=== PATIENT | male | born 1975 | race African-American/Black ===

== ENCOUNTER 2022-03-17 08:48 | Emergency (ER) | payer OTHER, SELFPAY ==
--- NOTE | ~2022-03-17 | XR_ITS ---
XR shoulder LT min 2V DATE: 03/17/2022 09:23 INDICATION: Pain and numbness of left shoulder TECHNIQUE: 4 views COMPARISON: None FINDINGS: There is degenerative disc disease at C5-6 and C6-7, with uncovertebral joint spurring at t hese levels. No fracture or dislocation, periosteal reaction or bone destruction of the left shoulder. Normal alig nment at the left acromioclavicular and glenohumeral joints and both sternoclavicular joints. IMPRESSION: Degenerative disc disease and uncovertebral joint spurring at C5-6 and C6-7 No significant abnormality of the left shoulder Reviewed, dictated and finalized at location A. [facility]
[2022-03-17 08:50] VITALS: BP 146/80; PULSE 76; RESP 16; TEMP 37.1; O2SAT 100
--- NOTE | 2022-03-17 09:28 | ED.EXTPRO ---
HPI - Extremity Problem General Chief complaint: Extremity Problem,Nontraumatic Stated complaint: shoulder pain Time Seen by Provider: 03/17/22 08:56 History of Present Illness HPI Narrative: 46-year-old male here for evaluation of atraumatic left shoulder pain for the past 2 days. Patient states the pain starts in his scapula and shoots down into his hand. Pain is there when he moves his neck. Denies any weakness, neck pain, traumatic injury, fevers or chills, chest pain or shortness of breath. He has not attempted any medicine for his pain. Related Data Allergies Allergy/AdvReac Type Severity Reaction Status Date / Time No Known Allergies Allergy Verified 03/17/22 09:58 Review of Systems Review of Systems: Gen: Denies fevers or chills Eyes: Denies eye pain or visual change ENT: Denies congestion Respiratory: Denies shortness of breath or cough CV: Denies chest pain or palpitations GI: Denies abdominal pain nausea, emesis or diarrhea : denies burning, urgency, frequency or hematuria Musculoskeletal: Reports left shoulder pain. Denies back pain or muscle pain Neuro: Denies numbness, tingling, weakness or focal weakness Skin: Denies rash Except as documented, all other systems reviewed and negative Exam Narrative: APPEARANCE: Uncomfortable appearing. Head: Normocephalic and atraumatic. EYES: PERRLA/EOMI, conjunctivae clear NOSE: No nasal drainage EARS: External ear normal in appearance THROAT: Oropharynx is clear. Mucous membranes are moist. NECK: Supple. No adenopathy, no masses. RESPIRATORY: Airway patent, respirations nonlabored. Clear to auscultation bilaterally, no rales, rhonchi, wheezing. CARDIOVASCULAR: 2+ radial pulse bilaterally. Regular rate and rhythm without murmurs, rubs, or gallops. ABDOMINAL: Normoactive bowel sounds. Soft, nontender, nondistended. No rebound tenderness or guarding. MUSCULOSKELETAL: Tender to palpation along left scapula. Spurling's test positive. No bony tenderness to palpation along humeral head, radius or ulna, carpal bones or fingers. NEURO: 5 out of 5 strength in bilateral upper extremities. Normal speech. No focal neurologic deficits. SKIN: Skin is warm and dry. No rashes. PSYCHIATRIC: Normal affect/mood. Course Vital Signs Vital signs: Vital Signs Temperature 98.8 F 03/17/22 08:50 Pulse Rate 76 03/17/22 08:50 Respiratory Rate 16 03/17/22 08:50 Blood Pressure 146/80 H 03/17/22 08:50 Pulse Oximetry 100 03/17/22 08:50 Temperature 98.8 F 03/17/22 08:50 Pulse Rate 76 03/17/22 08:50 Respiratory Rate 16 03/17/22 08:50 Blood Pressure 146/80 H 03/17/22 08:50 Pulse Oximetry 100 03/17/22 08:50 MDM - Extremity (Nontraumatic) MDM Narrative Medical decision making narrative: 46-year-old male here for evaluation of atraumatic left upper extremity pain and paresthesias for the past 2 days. Patient is nontoxic-appearing, + tenderness to the left scapula that has a positive Spurling's test. History and physical exam raise suspicion for cervical stenosis, which is supported by evidence of cervical spine arthritis on the shoulder x-ray. There is no other acute shoulder abnormality seen. Patient is feeling improved after Toradol, he be discharged home to follow-up with neurosurgery. No evidence of vertebral osteomyelitis, stroke, STEMI or other emergent causes of shoulder pain. He was given return precautions and he voiced understanding. Discharge Plan Discharge Clinical Impression: Cervical spinal stenosis Patient Disposition: Home, Self-Care Condition: Stable Instructions: Antibiotic Form, Cervical Spinal Stenosis (ED) Additional Instructions: There is no abnormality in your shoulder but you have evidence of arthritis in your neck that is likely causing your symptoms. This is called cervical stenosis. For pain, alternate between Tylenol and ibuprofen. You can take 1000mg of Tylenol every 6 hours and 800 mg Motrin/ibuprofen ever
[2022-03-17] MEDS: KETOROLAC 30 MG/ML VIAL (*BKC) IM (09:59)
== END 2022-03-17 10:34 | disposition home or self-care (01) ==
LOC: ANHED 10:25
PROVIDERS: Emergency Provider Physician Assistant
DX: M48.02 Spinal stenosis, cervical region (principal); M50.322 Other cervical disc degeneration at C5-C6 level; M50.323 Other cervical disc degeneration at C6-C7 level
CPT/HCPCS: 73030; 96372; 99283; J1885